=== PATIENT | male | born 1970 | race African-American/Black ===

== ENCOUNTER 2018-12-30 13:56 | Emergency (ER) | payer OTHER ==
--- NOTE | 2018-12-30 15:25 | RAD ---
LEFT HAND 3 VIEWS: Date: 12/30/18 HISTORY: Hand injury. FINDINGS: There are transversely oriented mid shaft fractures of the middle phalanx of the middle and right fin gers that are not displaced. IMPRESSION: Nondisplaced middle phalanx middle and ring finger fractures. POS: [facility]
[2018-12-30] MEDS ORDERED: Lidocaine 1% (PF) 30 ML VIAL ONE ×2 (15:40→15:41)
[2018-12-30] MEDS ORDERED: Adacel (T-DAP) 0.5 ML SYRINGE ONE (15:40)
[2018-12-30] MEDS ORDERED: CEFAZOLIN 1 GM VIAL ONE (15:40)
[2018-12-30] MEDS ORDERED: Bupivacaine 0.5% 10 ML VIAL ONE (15:40)
[2018-12-30] MEDS ORDERED: Bacitracin Zinc 1 Packet ONE (16:57)
== END 2018-12-30 17:20 | disposition home or self-care (01) ==
LOC: ERS 13:56
DX: S62.653B Nondisplaced fracture of middle phalanx of left middle finger, initial encounter for open fracture (principal); S62.655B Nondisplaced fracture of middle phalanx of left ring finger, initial encounter for open fracture; S61.211A Laceration without foreign body of left index finger without damage to nail, initial encounter; S61.213A Laceration without foreign body of left middle finger without damage to nail, initial encounter; S61.215A Laceration without foreign body of left ring finger without damage to nail, initial encounter; F17.210 Nicotine dependence, cigarettes, uncomplicated; W31.9XXA Contact with unspecified machinery, initial encounter
CPT/HCPCS: 12005; 90471; 90715; 96372; J0690; J2001; J3490